=== PATIENT | male | born 1930 | race African-American/Black ===

== ENCOUNTER → 2018-09-16 | Outpatient (CLI) | payer MEDICARE, OTHER ==
--- NOTE | 2018-09-16 12:24 | PCVCIMAG ---
APPROVED REPORT Study performed: 09/16/2018 10:40:16 EXAM: Comprehensive 2D, Doppler, and color-flow Echocardiogram Patient Location: Echo lab Status: routine BSA: 1.85 HR: 83 bpmBP: 122/64 mmHg Rhythm: NSR w/ Frequent PVCs Other Information Study Quality: Adequate Risk Factors: Cardiac Risk Factors: HTN Indications Abnormal ECG Dyspnea edema 2D Dimensions IVSd: 10.69 (7-11mm) LVDd: 53.96 mm PWd: 8.96 (7-11mm) LVDs: 49.52 (25-40mm) Left Atrium: 42.21 (27-40mm) Aortic Root: 34.94 mm LV Single Plane 4CH: 27.87 % LV Single Plane 2CH: 31.47 % Biplane EF: 32.0 % Volumes Left Atrial Volume (Systole) Single Plane 4CH: 65.81 mLSingle Plane 2CH: 73.17 mL LA ESV Index: 40.00 mL/m2 Aortic Valve AoV Peak Juan.: 1.41 m/s AO Peak Gr.: 7.98 mmHgLVOT Max P.68 mmHg LVOT Max V: 0.65 m/s AI Vmax: 3.69 m/s AI Tucker: 3.10 m/s2 AI PHT: 345.88 ms Mitral Valve E/A Ratio: 1.4 MV Decel. Time: 150.08 ms MV E Max Juan.: 1.12 m/s MV A Juan.: 0.80 m/s MV PHT: 43.52 ms IVRT: 89.97 ms Pulmonary Valve PV Peak Juan.: 0.94 m/sPV Peak Gr.: 3.55 mmHg Pulmonary Vein P Vein S: 0.53 m/sP Vein A: 0.36 m/s P Vein D: 0.80 m/sP Vein A Dur.: 145.3 msec P Vein S/D Ratio: 0.66 Tricuspid Valve TR Peak Juan.: 3.42 m/s TR Peak Gr.: 46.71 mmHg Left Ventricle The left ventricle is normal size. There is normal LV segmental wall motion. There is normal left ventricular wall thickness. Left ventricular ejection fraction is severely decreased. LVEF is 30%. Grade II - pseudonormal filling dynamics. Right Ventricle The right ventricle is normal size. The right ventricular systolic function is normal. Atria Left atrium is moderately dilated. Right atrium is moderately dilated. Aortic Valve The aortic valve is normal in structure. Mild to moderate aortic regurgitation. There is no aortic valvular stenosis. Mitral Valve The mitral valve is normal in structure. Moderate mitral regurgitation. No evidence of mitral valve stenosis. Tricuspid Valve The tricuspid valve is normal in structure. Moderate to severe tricuspid regurgitation with PAP of 55 mmHg. Pulmonic Valve The pulmonary valve is normal in structure. Moderate pulmonic regurgitation. Great Vessels The aortic root is normal in size. IVC is normal in size and collapses >50% with inspiration. Pericardium There is no pericardial effusion. There is no pleural effusion. <Conclusion> The left ventricle is normal size. There is normal left ventricular wall thickness. Left ventricular ejection fraction is severely decreased. Grade II - pseudonormal filling dynamics. The right ventricle is normal size. Left atrium is moderately dilated. Right atrium is moderately dilated. Mild to moderate aortic regurgitation. Moderate mitral regurgitation. Moderate to severe tricuspid regurgitation with PAP of 55 mmHg.
== END | disposition home or self-care (01) ==
LOC: PCVCIMAG 13:22
PROVIDERS: ATTEND Internal Medicine Cardiovascular Disease
DX: I08.3 Combined rheumatic disorders of mitral, aortic and tricuspid valves (principal); R94.31 Abnormal electrocardiogram [ECG] [EKG]; R93.1 Abnormal findings on diagnostic imaging of heart and coronary circulation; R60.0 Localized edema; I10 Essential (primary) hypertension; E78.5 Hyperlipidemia, unspecified; I25.10 Atherosclerotic heart disease of native coronary artery without angina pectoris; J44.9 Chronic obstructive pulmonary disease, unspecified; E78.00 Pure hypercholesterolemia, unspecified; Z88.0 Allergy status to penicillin; Z79.82 Long term (current) use of aspirin; Z87.891 Personal history of nicotine dependence
CPT/HCPCS: 93005; 93306; G0463

== ENCOUNTER → 2018-09-24 | Outpatient (CLI) | payer MEDICARE, OTHER ==
[~2018-09-24] MED LIST: REGADENOSON 0.4 MG/5 ML DISP.SYRIN. IV ONE
--- NOTE | 2018-09-24 12:08 | PCVCIMAG ---
APPROVED REPORT Imaging Protocol: Rest Tc-99m/Stress Tc-99m 1 day Study performed: 09/24/2018 08:48:05 Indication: Abnormal EKG, Dyspnea, High Ca Score Patient Location: Out-Patient Stress Nurse: Clary Marte RN, Sharda Kim RN GA Tech:ROCKY Schulz Ht: 5 ft 10 in Wt: 150 lbs BSA: 1.85 m2 HR: 96 bpm BP: 139/109 mmHg BMI: 21.52 Rhythm: Atrial Fibrillation, IVCD Medical History Medical History: HTN, Hyperlipidemia, COPD, CKD, Former Smoker Medications: ASA, Coreg, Imdur, Lisinopril, Simvastin Allergies: PCN Cardiac Risk Factors: Age Pretest Chest Pain Characteristics: No chest pain Exercise History: Sedentary Resting Data Rest SPECT myocardial perfusion imaging was performed in supine position 45 minutes following the intravenous injection of 10.2 mCi of Tc-99m Sestamibi. Time of rest injection: 819 Administration Route: IV Administration Site: Right AC Pharmacologic Stress Pharmacologic stress test was performed by injecting Regadenoson 0.4 mg IV push over 10-15 seconds immediately followed by the intravenous injection of 32.2 mCi of Tc-99m Sestamibi. Time of stress injection: 939 Date: 09/24/2018 Administration Route: IV Administration Site: Right Hand Gated Stress SPECT was performed 45 minutes after stress injection. The images were gated to evaluate regional wall motion and calculate left ventricular ejection fraction. Stress Test Details Stress Test: Pharmacologic stress testing performed using 0.4 mg of regadenoson per 5 mL given IV over 10 seconds. Reason for pharmacologic stress test: gait instability. HRMax Heart Rate (APMHR): 134 bpm Resting HR: 96 bpmTarget HR (85% APMHR): 113 bpm Max HR Achieved: 113 bpm % of APMHR: 84 Recovery HR: 98 bpm BP Resting BP: 139/109 mmHg Max BP: 139/89 mmHg Recovery BP: 155/81 mmHg ECG Resting ECG: Atrial Fibrillation, LBBB Stress ECG: Atrial Fibrillation, LBBB ST Change: Nondiagnostic due to LBBB Recovery ECG: Atrial Fibrillation, RVR Clinical Reason for Termination: Completed protocol Stress Symptoms: None Exercise duration: 0 min 55 sec Study Quality Study: Good Study Data Post stress, the left ventricular ejection was 21%.. SSS: 4 SRS: 4 SDS: 0 TID = 1.02. Perfusion There are small areas of mildly reduced uptake in the mid segment of the anterior wall and basal inferior wall which are seen on the stress images as well as the resting images. These areas are hypokinetic and is most consistent with myocardial scar. Wall Motion Severely decreased left ventricular systolic function. Nuclear Conclusion ECG Findings: non-diagnostic Clinical Findings: non-diagnostic Nuclear Findings: positive for infarct Exercise Capacity: not assessed Left Ventricular Function: abnormal This study reveals fixed defects in the mid anterior and basal inferior segments, suggestive for prior infarcts. There is severe global LV dysfunction.
== END | disposition home or self-care (01) ==
LOC: PCVCIMAG 08:11
PROVIDERS: ATTEND Internal Medicine Cardiovascular Disease
DX: R94.31 Abnormal electrocardiogram [ECG] [EKG] (principal); R06.09 Other forms of dyspnea; R93.1 Abnormal findings on diagnostic imaging of heart and coronary circulation; I48.91 Unspecified atrial fibrillation; I42.9 Cardiomyopathy, unspecified; I10 Essential (primary) hypertension; R60.9 Edema, unspecified; Z87.891 Personal history of nicotine dependence; Z88.0 Allergy status to penicillin
CPT/HCPCS: 78452; 93017; A9500; G0463; J2785

== ENCOUNTER → 2018-11-14 | Outpatient (CLI) | payer MEDICARE, OTHER | END | disposition home or self-care (01) | LOC: PCVCCLINIC 14:17 | PROVIDERS: ATTEND Internal Medicine Cardiovascular Disease | DX: I48.91 Unspecified atrial fibrillation (principal); I42.9 Cardiomyopathy, unspecified; I10 Essential (primary) hypertension; R60.9 Edema, unspecified; E78.00 Pure hypercholesterolemia, unspecified; Z87.891 Personal history of nicotine dependence | CPT/HCPCS: 36415; 93005; G0463 ==

== ENCOUNTER → 2019-05-13 | Outpatient (CLI) | payer MEDICARE, OTHER | END | disposition home or self-care (01) | LOC: PCVCCLINIC 11:00 | PROVIDERS: ATTEND Internal Medicine Cardiovascular Disease | DX: I48.91 Unspecified atrial fibrillation (principal); I42.9 Cardiomyopathy, unspecified; I10 Essential (primary) hypertension; R60.9 Edema, unspecified; Z79.899 Other long term (current) drug therapy; M19.90 Unspecified osteoarthritis, unspecified site; J44.9 Chronic obstructive pulmonary disease, unspecified; E78.00 Pure hypercholesterolemia, unspecified; Z87.891 Personal history of nicotine dependence | CPT/HCPCS: 93005; G0463 ==